=== PATIENT | male | born 1965 | race Two or more races ===

== ENCOUNTER 2018-10-21 11:42 | Emergency (ER) | payer BC, OTHER ==
[~2018-10-21] VITALS: Ht 182.9 cm; Wt 129.3 kg
[2018-10-21 12:26] LABS: Urine Bacteria NONE SEEN /hpf (None Seen); Urine Blood Negative /uL (Negative); Urine Mucus FEW (None Seen); Urine Specific Gravity 1.025 (1.001-1.035); Urine WBC 2 /hpf (0 - 3)
[2018-10-21 13:14] LABS: Basophils # (auto) 0 uL; Basophils % (auto) 0.4 % (0.0-2.0); Eosinophils # (auto) 0 uL; Eosinophils % (auto) 0.3 % (0.0-7.0); Hematocrit 48.3 % (41.0-53.0); Hemoglobin 16.2 g/dL (13.5-17.5); Lymphocytes # (auto) 1.7 uL; Lymphocytes % (auto) 22.9 % (10.0-50.0); Mean Corpuscular Hemoglobin 30.9 pg (28.0-32.0); Mean Corpuscular Hgb Conc. 33.6 g/dL (32.0-36.0); Monocytes # (auto) 0.8 uL; Monocytes % (auto) 11.4 % (0.0-12.0); Neutrophils # (auto) 4.8 uL; Nucleated Red Blood Cells % 0.1 %; Platelet Count (auto) 273 10^3/uL (140-450); Red Blood Cells 5.26 10^6/uL (4.5-5.90); Red Cell Distribution Width 13.9 % (11.8-14.3); White Blood Cell 7.5 10^3/uL (4.4-10.8)
[2018-10-21 13:22] LABS: Anion Gap 9 (5-15); Blood Urea Nitrogen 17 mg/dL (7-18); Calcium 8.5 mg/dL (8.5-10.1); Carbon Dioxide 20 mmol/L (21-32); Chloride 110 mmol/L (98-107); Glucose 114 mg/dL (74-106); Potassium 3.7 mmol/L (3.5-5.1); Sodium 139 mmol/L (136-145)
[2018-10-21 13:25] LABS: Alanine Aminotransferase 48 U/L (16-61); Aspartate Aminotransferase 22 U/L (15-37); BUN/Creatinine Ratio 14.3; GFR African American 83 mL/min; GFR Non-African American 69 mL/min
[2018-10-21 13:30] LABS: Alkaline Phosphatase 78 U/L (45-117); Bilirubin, Total 0.7 mg/dL (0.2-1.0); Total Protein 8.1 g/dL (6.4-8.2)
[2018-10-21] MEDS ORDERED: IOHEXOL 300 MG/ML 100ML BOTTLE IJ ONE (18:24)
[2018-10-21] MEDS ORDERED: ALUM & MAG HYDROX-SIMETH LIQ(MAALOX) 30 ML PO ONE (18:30)
[2018-10-21] MEDS ORDERED: LIDOCAINE VISCOUS 2% 15ML UD PO ONE (18:30)
[2018-10-21] MEDS ORDERED: DONNATAL 5ml ORAL Elix (BELLADONNA ALK-PHENOBARB) PO ONE (18:30)
[2018-10-21] MEDS ORDERED: SODIUM CHLORIDE 0.9% 500 ML IV ONE (20:00)
[2018-10-21] MEDS ORDERED: PANTOPRAZOLE 40 MG TAB PO ONE ×2 (21:05→21:15)
[2018-10-21 21:07] VITALS: BP 139/77
== END 2018-10-21 21:16 | disposition home or self-care (01) ==
LOC: ER 11:52
DX: K21.0 Gastro-esophageal reflux disease with esophagitis (principal)
CPT/HCPCS: 36415; 70490; 74177; 80053; 81001; 83690; 84484; 85025; 93005; 99284; Q9967

== ENCOUNTER 2018-10-25 11:15 | Emergency (ER) | payer BC ==
[~2018-10-25] VITALS: Ht 182.9 cm; Wt 129.3 kg
[2018-10-25 17:37] LABS: Basophils # (auto) 0 uL; Basophils % (auto) 0.3 % (0.0-2.0); Eosinophils # (auto) 0.1 uL; Eosinophils % (auto) 0.8 % (0.0-7.0); Hematocrit 49.7 % (41.0-53.0); Hemoglobin 16.7 g/dL (13.5-17.5); Lymphocytes # (auto) 2.2 uL; Lymphocytes % (auto) 28.4 % (10.0-50.0); Mean Corpuscular Hemoglobin 30.9 pg (28.0-32.0); Mean Corpuscular Hgb Conc. 33.7 g/dL (32.0-36.0); Mean Corpuscular Volume 91.9 fL (80.0-100.0); Monocytes # (auto) 0.8 uL; Monocytes % (auto) 10.5 % (0.0-12.0); Neutrophils # (auto) 4.7 uL; Platelet Count (auto) 278 10^3/uL (140-450); Red Blood Cells 5.41 10^6/uL (4.5-5.90); Red Cell Distribution Width 13.5 % (11.8-14.3); White Blood Cell 7.8 10^3/uL (4.4-10.8)
[2018-10-25 18:15] VITALS: BP 126/83
[2018-10-25] MEDS ORDERED: LIDOCAINE VISCOUS 2% 15ML UD PO ONE (19:00)
== END 2018-10-25 19:10 | disposition home or self-care (01) ==
LOC: ER 11:15
DX: R07.89 Other chest pain (principal); K21.9 Gastro-esophageal reflux disease without esophagitis; I10 Essential (primary) hypertension
CPT/HCPCS: 36415; 84484; 85025; 85379